=== PATIENT | male | born 1990 | race Hispanic/Latino ===

== ENCOUNTER 2018-01-02 20:01 | Emergency (ER) | payer SELFPAY ==
[2018-01-02] MEDS ORDERED: Adacel (T-DAP) 0.5 ML VIAL ONE (21:56)
== END 2018-01-02 22:15 | disposition home or self-care (01) ==
LOC: ERS 20:01
DX: S01.01XA Laceration without foreign body of scalp, initial encounter (principal); F32.9 Major depressive disorder, single episode, unspecified; Z87.891 Personal history of nicotine dependence; W45.0XXA Nail entering through skin, initial encounter; Y92.009 Unspecified place in unspecified non-institutional (private) residence as the place of occurrence of the external cause
CPT/HCPCS: 12001; 90471; 90715

== ENCOUNTER 2018-01-15 09:54 | Emergency (ER) | payer SELFPAY | END 2018-01-15 10:14 | disposition home or self-care (01) | LOC: ERS 09:54 | DX: S01.01XD Laceration without foreign body of scalp, subsequent encounter (principal); F32.9 Major depressive disorder, single episode, unspecified; Z87.891 Personal history of nicotine dependence ==

== ENCOUNTER 2018-12-15 14:36 | Emergency (ER) | payer SELFPAY ==
[2018-12-15] MEDS ORDERED: Adacel (T-DAP) 0.5 ML SYRINGE ONE (14:43)
[2018-12-15] MEDS ORDERED: Fentanyl 100 MCG/2 ML VIAL ONE (15:05)
[2018-12-15] MEDS ORDERED: Lidocaine 1% PF 5 ML VIAL ONE (15:05)
--- NOTE | 2018-12-15 15:30 | RAD ---
RIGHT FOREARM TWO VIEWS: History: Right arm injury. FINDINGS: Radius and ulna are intact. Mild ulnar negative variant. No acute fracture, dislocation, or aggressiv e osseous erosions. IMPRESSION: No acute osseous abnormalities are demonstrated. POS: NIKOSH
--- NOTE | 2018-12-15 15:33 | RAD ---
RIGHT HAND THREE VIEWS: History: Right hand injury. FINDINGS: Joint spaces are preserved. No acute fracture, dislocation, or aggressive osseous erosions. Small navjot ntly opaque oval objects project over the soft tissue webbing between the first and second metacarpal s. IMPRESSION: 1. No acute osseous abnormalities are demonstrated. 2. Small, oval faintly radiopaque objects at the lateral palm could represent imbedded foreign bodies . Correlation with clinical findings is required. POS: ESTER
[2018-12-15] MEDS ORDERED: Bacitracin Zinc 1 Packet ONE (15:40)
== END 2018-12-15 15:54 | disposition home or self-care (01) ==
LOC: ERS 14:36
DX: S67.21XA Crushing injury of right hand, initial encounter (principal); S61.011A Laceration without foreign body of right thumb without damage to nail, initial encounter; S50.11XA Contusion of right forearm, initial encounter; F32.9 Major depressive disorder, single episode, unspecified; Z23 Encounter for immunization; Z87.891 Personal history of nicotine dependence; W20.8XXA Other cause of strike by thrown, projected or falling object, initial encounter; Y99.0 Civilian activity done for income or pay
CPT/HCPCS: 64450; 90471; 90715; 96372; J2001; J3010

== ENCOUNTER 2018-12-25 19:16 | Emergency (ER) | payer SELFPAY | END 2018-12-25 19:38 | disposition home or self-care (01) | LOC: ERS 19:16 | DX: B00.9 Herpesviral infection, unspecified (principal); F32.9 Major depressive disorder, single episode, unspecified; F17.210 Nicotine dependence, cigarettes, uncomplicated | CPT/HCPCS: 99281 ==

== ENCOUNTER 2019-06-08 01:09 | Emergency (ER) | payer SELFPAY ==
[2019-06-08] MEDS ORDERED: Ondansetron PF 4 MG/2 ML Vial ONE (01:19)
[2019-06-08] MEDS ORDERED: Morphine 4 MG/ML VIAL ONE ×2 (01:31→01:56)
[2019-06-08 01:39] LABS: #Basophils 0.1 thou/uL (0.0-0.2); #Eosinphils 0.3 thou/uL (0.0-0.7); #Monocytes 0.6 thou/uL (0.11-0.59); #Neutrophils 6.1 thou/uL (1.40-6.50); %Basophils 0.7 % (0.0-1.0); %Eosinophils 3.7 % (0.0-10.0); %Lymphocytes 22.5 % (21.0-51.0); %Monocytes 6.2 % (0.0-10.0); %Neutrophils 66.9 % (42.0-75.0); Hemoglobin 14.1 g/dL (14.0-18.0); Mean Corpuscular HGB CONC 35.2 g/dL (32.0-36.0); Mean Corpuscular Hemoglobin 33.1 pg (27.0-31.0); Mean Platelet Volume 8.1 fL (7.4-10.4); Platelet Count 158 thou/uL (130-400); RBC Distribution Width 11.6 % (11.5-14.5); Red Blood Cell (RBC) Count 4.27 mill/uL (4.70-6.10); White Blood Cell (WBC) Count 9.1 thou/uL (4.8-10.8)
[2019-06-08 01:59] LABS: ALT (SGPT) 17 U/L (8-55); AST (SGOT) 24 U/L (5-34); Albumin 4.1 g/dL (3.5-5.0); Alkaline Phosphatase 87 U/L (40-150); Anion Gap 8 mmol/L (10-20); BUN (Urea Nitrogen) 10 mg/dL (8.9-20.6); Bilirubin, Total 0.4 mg/dL (0.2-1.2); CK (CPK) 94 U/L (30-200); Calc. Creatinine Clearance 0 mL/min (70-130); Calcium 9.1 mg/dL (7.8-10.44); Carbon Dioxide 33 mmol/L (22-29); Chloride 101 mmol/L (98-107); Estimated GFR-MDRD Greater than 90; Globulin 2.3 g/dL (2.4-3.5); Glucose 116 mg/dL (70-105); Lipase 21 U/L (8-78); Potassium 3.4 mmol/L (3.5-5.1); Protein, Total 6.4 g/dL (6.0-8.3); Sodium 139 mmol/L (136-145)
[2019-06-08] MEDS ORDERED: Lidocaine Viscous Sol 2% 15 ml UD Cup ONE (02:18)
[2019-06-08] MEDS ORDERED: Ketorolac Tromethamine 30 MG/ML VIAL ONE (02:18)
[2019-06-08] MEDS ORDERED: Mag-Al 1200 mg/1200 mg/30 ML UDCUP ONE (02:18)
[2019-06-08] MEDS ORDERED: Promethazine HCl 25 MG/ML VIAL ONE (02:22)
--- NOTE | 2019-06-08 07:49 | ULT ---
PRELIMINARY REPORT/[facility]/EMERGENCY AFTER HOURS PROCEDURE: EXAM: US Abdomen Limited, Right Upper Quadrant EXAM DATE/TIME: 06/08/2019 3:18 AM CLINICAL HISTORY: 29 years old, male; Nausea and vomiting and other: Diarrhea; Abdominal pain; Epigastric TECHNIQUE: Imaging protocol: Real-time ultrasound of the abdomen with image documentation. Examination was focused on the right upper quadrant. COMPARISON: CT Abdomen Pelvis W Con 06/08/2019 1:37 AM FINDINGS: Liver: Liver is 18 cm in length with normal echogenicity. Gallbladder: Gallbladder does not appear to contain stones. Common bile duct: Common bile duct is normal in width at 5 mm. Pancreas: Visualized portions of the pancreas appear normal. Right kidney: Right kidney 4.2 x 5.5 x 9.9 cm appears normal. Portal venous: Normal appearing main portal vein flow. Intraperitoneal space: No evidence of free fluid. IMPRESSION: 1. Mild enlargement/elongation of the liver. 2. No evidence gallstones, biliary ductal dilatation, gallbladder wall thickening or pericholecystic fluid. Thank you for allowing us to participate in the care of your patient. Dictated and Authenticated by: Jarod Wilhelm MD 06/08/2019 3:40 AM Central Time ([place] & [place]) FINAL REPORT EMERGENCY AFTER HOURS RIGHT UPPER QUADRANT ULTRASOUND: Date: 06/08/19 Time: 0328 hours FINDINGS/IMPRESSION: Mild elongation or enlargement of the liver. No evidence of gallstones, common duct dilatation, or ot her acute process. Report is in agreement with the preliminary report. Transcribed Date/Time: 06/08/2019 8:02 AM
--- NOTE | 2019-06-08 09:10 | CT ---
PRELIMINARY REPORT/[facility]/EMERGENCY AFTER HOURS PROCEDURE: EXAM: CT Abdomen and Pelvis With Contrast EXAM DATE/TIME: 06/08/2019 1:37 AM CLINICAL HISTORY: 29 years old, male; Patient HX: Er 14. PT C/O severe abdominal pain (epigastric) and vomiting that st arted around midnight tonight. reports that PT gets this way when he becomes dehydrated. TECHNIQUE: Imaging protocol: Axial computed tomography images of the abdomen and pelvis with intravenous contras t. COMPARISON: No relevant prior studies available. FINDINGS: Limitations: Motion artifact limits this study. Liver: Normal. No mass. Gallbladder and bile ducts: Gallbladder appears contracted, limits evaluation. Pancreas: Normal. No ductal dilation. Spleen: Normal. No splenomegaly. Adrenals: Normal. No mass. Kidneys and ureters: Normal. No hydronephrosis. Stomach and bowel: No evidence of bowel obstruction. Appendix: Appendix - visualized portions appear normal. Intraperitoneal space: Normal. No free air. No significant fluid collection. Vasculature: Normal. No abdominal aortic aneurysm. Lymph nodes: Normal. No enlarged lymph nodes. Bladder: Unremarkable as visualized. Reproductive: Prostate appears within normal limits. Bones/joints: No acute fracture. No dislocation. Soft tissues: Unremarkable. IMPRESSION: 1. Motion artifact limits this study. 2. No evidence of bowel obstruction. Thank you for allowing us to participate in the care of your patient. Dictated and Authenticated by: Jarod Wilhelm MD 06/08/2019 2:18 AM Central Time ([place] & [place]) FINAL REPORT ABDOMEN CT WITH CONTRAST PELVIC CT WITH CONTRAST: Date: 06/08/19 HISTORY: Epigastric pain. Emesis. COMPARISON: None. FINDINGS: ABDOMEN CT: Clear lung bases. Appropriate enhancement of the solid organs. No mesenteric mass, lymphadenopathy, f ree air, or free fluid. Limited evaluation of the alimentary canal by lack of oral contrast. No evidence of bowel obstruction . Appendix is partially visualized and appears to be normal in caliber. PELVIC CT: Unremarkable urinary bladder. Small amount of free fluid in the pelvis. No mass, lymphadenopathy, or free air. IMPRESSION: This report is in agreement with the preliminary report by [facility]. No obvious acute abnormality in the abdomen or pelvis. A small amount of free fluid in the pelvis may be present. Evaluation is limited b y motion. Correlate clinically. Results of study discussed with Dr. Ratliff on 06/08/19 at 0747 hours. CODE CR. POS: OFF
== END 2019-06-08 04:26 | disposition home or self-care (01) ==
LOC: ERS 01:09
DX: R10.13 Epigastric pain (principal); F32.9 Major depressive disorder, single episode, unspecified; F17.210 Nicotine dependence, cigarettes, uncomplicated
CPT/HCPCS: 36415; 74177; 76705; 80053; 82550; 83690; 85025; 96361; 96365; 96366; 96375; J1885; J2270; J2405; J2550

== ENCOUNTER 2021-05-02 02:32 | Inpatient (IN) | payer SELFPAY ==
[2021-05-02] MEDS ORDERED: Ondansetron PF 4 MG/2 ML Vial ONE (02:48)
[2021-05-02 03:17] LABS: #Lymphocytes 2.5 thou/uL (1.20-3.40); #Monocytes 0.7 thou/uL (0.11-0.59); #Neutrophils 15.4 thou/uL (1.40-6.50); %Basophils 0.1 % (0.0-1.0); %Eosinophils 0.2 % (0.0-10.0); %Lymphocytes 13.4 % (21.0-51.0); %Monocytes 3.6 % (0.0-10.0); %Neutrophils 82.7 % (42.0-75.0); Hemoglobin 18.9 g/dL (14.0-18.0); Mean Corpuscular HGB CONC 34.3 g/dL (32.0-36.0); Mean Corpuscular Hemoglobin 31.3 pg (27.0-31.0); Mean Platelet Volume 8.3 fL (7.4-10.4); Platelet Count 365 thou/uL (130-400); Red Blood Cell (RBC) Count 6.04 mill/uL (4.70-6.10); White Blood Cell (WBC) Count 18.6 thou/uL (4.8-10.8)
[2021-05-02 03:37] LABS: ALT (SGPT) 37 U/L (8-55); AST (SGOT) 36 U/L (5-34); Alkaline Phosphatase 104 U/L (40-110); Anion Gap 29 mmol/L (10-20); BUN (Urea Nitrogen) 28 mg/dL (8.9-20.6); Bilirubin, Total 1.6 mg/dL (0.2-1.2); CK (CPK) 427 U/L (30-200); Calc. Creatinine Clearance 0 mL/min (70-130); Carbon Dioxide 17 mmol/L (22-29); Chloride 96 mmol/L (98-107); Glucose 138 mg/dL (70-105); Magnesium 2.6 mg/dL (1.6-2.6); Potassium 4.8 mmol/L (3.5-5.1); Protein, Total 10.8 g/dL (6.0-8.3); Sodium 137 mmol/L (136-145)
[2021-05-02 03:41] LABS: Albumin Greater than 6.2 g/dL (3.5-5.0); Globulin 4.6 g/dL (2.4-3.5)
[2021-05-02 05:41] VITALS: BMI 23.0
[2021-05-02] MEDS ORDERED: Ondansetron PF 4 MG/2 ML Vial IVP PRN ×2 (07:21→21:03)
[2021-05-02] MEDS ORDERED: Ondansetron ODT 4 MG TAB PO PRN (07:21)
[2021-05-02] MEDS: Sodium Chloride 0.9% 1,000 ML IV SCH ×2 (08:39→10:33)
[2021-05-02 09:15] LABS: Acetaminophen Less than 6.0 mcg/mL (10.0-30.0); Alcohol Less than 10 mg/dL (Less than 10)
[2021-05-02 09:18] LABS: Lactic Acid 0.7 mmol/L (0.5-2.2)
[2021-05-02 09:28] LABS: Bacteria/HPF None Seen HPF (None Seen); Bilirubin Negative (Negative); Blood, Urine Negative (Negative); Clarity Turbid (Clear); Glucose, Urine (Dipstick) Normal (Negative); Ketone, Urine 10 mg/dL (Negative); Leukocyte Negative Leu/uL (Negative); Nitrite Negative (Negative); Protein, Urine (Dipstick) 70 mg/dL (Neg-Trace); RBC/HPF 0-3 HPF (0-3); Specific Gravity, Urine 1.025 (1.002-1.036); Squamous Epithelial None Seen HPF (0-3); Urobilinogen Normal mg/dL (Less than 2); WBC/HPF 0-3 HPF (0-3); pH, Urine 5.5 (5.0-9.0)
[2021-05-02 09:29] LABS: Urine Culture Reflex No No
[2021-05-02 09:36] LABS: Amphetamine Detected (NotDetected); Barbiturates Screen Not Detected (NotDetected); Benzodiazepine Screen Not Detected (NotDetected); Cocaine Metabolite Screen Not Detected (NotDetected); Medtox Control Line Valid? VALID (VALID); Medtox Reader # READER 4; Methadone Not Detected (NotDetected); Methamphetamine Detected (NotDetected); Opiate Screen Not Detected (NotDetected); Oxycodone Screen Not Detected (NotDetected); Phencyclidine (PCP) Not Detected (NotDetected); THC/Cannabinoid Screen Detected (NotDetected); Tricyclic Screen Not Detected (NotDetected)
[2021-05-02 09:40] LABS: Potassium, Urine 95.5 mmol/L
[2021-05-02 11:09] LABS: SARS-CoV-2 PCR by NAA Not Detected (NotDetected)
[2021-05-02] MEDS: Sodium Bicarbonate 150 MEQ in Dextrose 5% in Water 1,000 ML IV SCH ×3 (12:45→23:37)
[2021-05-03] MEDS: Sodium Bicarbonate 150 MEQ in Dextrose 5% in Water 1,000 ML IV SCH ×2 (05:24→11:34)
[2021-05-03 06:21] LABS: #Basophils 0.1 thou/uL (0.0-0.2); #Eosinphils 0.2 thou/uL (0.0-0.7); #Monocytes 0.6 thou/uL (0.11-0.59); #Neutrophils 3.3 thou/uL (1.40-6.50); %Basophils 0.8 % (0.0-1.0); %Eosinophils 3.2 % (0.0-10.0); %Lymphocytes 41.7 % (21.0-51.0); %Monocytes 8.3 % (0.0-10.0); %Neutrophils 46.1 % (42.0-75.0); Hemoglobin 13.5 g/dL (14.0-18.0); Mean Corpuscular HGB CONC 35.6 g/dL (32.0-36.0); Mean Corpuscular Hemoglobin 33.6 pg (27.0-31.0); Mean Corpuscular Volume 94.3 fL (78.0-98.0); Mean Platelet Volume 8.1 fL (7.4-10.4); Platelet Count 205 thou/uL (130-400); RBC Distribution Width 11.6 % (11.5-14.5); Red Blood Cell (RBC) Count 4.02 mill/uL (4.70-6.10); White Blood Cell (WBC) Count 7.2 thou/uL (4.8-10.8)
[2021-05-03 11:52] VITALS: BP 128/84; TEMP 98.2
[2021-05-03 12:10] LABS: Albumin 3.8 g/dL (3.5-5.0); BUN (Urea Nitrogen) 10 mg/dL (8.9-20.6); BUN/Creatinine Ratio 9.62; Calc. Creatinine Clearance 111 mL/min (70-130); Calcium 8.5 mg/dL (7.8-10.44); Chloride 97 mmol/L (98-107); Glucose 101 mg/dL (70-105); Phosphorus 2.4 mg/dL (2.3-4.7); Potassium 3.9 mmol/L (3.5-5.1); Sodium 139 mmol/L (136-145)
[2021-05-03 17:25] LABS: Anion Gap 15 mmol/L (10-20); Carbon Dioxide 29 mmol/L (22-29)
== END 2021-05-03 14:42 | disposition home or self-care (01) | DRG 683 ==
LOC: ERS 02:32 → ERHOLD 04:20 → T4-B 10:22
PROVIDERS: ADMIT Student in an Organized Health Care Education/Training Program; ATTEND Family Medicine
DX: N17.9 Acute kidney failure, unspecified (principal); M62.82 Rhabdomyolysis; E87.2 Acidosis; E86.0 Dehydration; F15.10 Other stimulant abuse, uncomplicated; F12.10 Cannabis abuse, uncomplicated; E83.52 Hypercalcemia; Z20.822 Contact with and (suspected) exposure to COVID-19; T67.5XXA Heat exhaustion, unspecified, initial encounter; X30.XXXA Exposure to excessive natural heat, initial encounter; Z98.890 Other specified postprocedural states; Z71.51 Drug abuse counseling and surveillance of drug abuser
CPT/HCPCS: 36415; 76770; 80053; 80069; 80143; 80306; 80307; 81001; 82010; 82436; 82550; 82570; 83605; 83735; 83930; 83935; 84133; 84300; 84540; 85025; 96374; J2405; J7070; U0003; U0005

== ENCOUNTER 2022-04-27 13:14 | Emergency (ER) | payer SELFPAY ==
[2022-04-27 14:01] LABS: #Eosinphils 0.1 thou/uL (0.0-0.7); #Monocytes 0.6 thou/uL (0.11-0.59); #Neutrophils 16.1 thou/uL (1.40-6.50); %Basophils 0.2 % (0.0-1.0); %Eosinophils 0.3 % (0.0-10.0); %Lymphocytes 5.6 % (21.0-51.0); %Monocytes 3.5 % (0.0-10.0); %Neutrophils 90.5 % (42.0-75.0); Hemoglobin 16.2 g/dL (14.0-18.0); Mean Corpuscular HGB CONC 34.4 g/dL (32.0-36.0); Mean Corpuscular Hemoglobin 33.1 pg (27.0-31.0); Mean Corpuscular Volume 96.3 fL (78.0-98.0); Mean Platelet Volume 7.6 fL (7.4-10.4); Platelet Count 229 thou/uL (130-400); RBC Distribution Width 11.5 % (11.5-14.5); White Blood Cell (WBC) Count 17.8 thou/uL (4.8-10.8)
[2022-04-27 14:22] LABS: ALT (SGPT) 19 U/L (8-55); AST (SGOT) 21 U/L (5-34); Albumin 4.7 g/dL (3.5-5.0); Alkaline Phosphatase 83 U/L (40-110); Anion Gap 14 mmol/L (10-20); BUN (Urea Nitrogen) 17 mg/dL (8.9-20.6); Bilirubin, Total 0.9 mg/dL (0.2-1.2); Calc. Creatinine Clearance 0 mL/min (70-130); Calcium 10.1 mg/dL (7.8-10.44); Carbon Dioxide 26 mmol/L (22-29); Chloride 102 mmol/L (98-107); Globulin 2.9 g/dL (2.4-3.5); Glucose 120 mg/dL (70-105); Lipase 13 U/L (8-78); Potassium 4.2 mmol/L (3.5-5.1); Protein, Total 7.6 g/dL (6.0-8.3); Sodium 138 mmol/L (136-145)
[2022-04-27 17:17] LABS: Actual Bicarbonate (HCO3v) 26 mEq/L (22-28); Analyzer IN Cardio ER; Base Excess -0.1 mEq/L (-2.0 to +3.0); Calcium, Ionized (venous) 1.14 mmol/L (1.16-1.32); Chloride (VBG) 99 mmol/L (98-106); Hemoglobin (Hb) 20.5 g/dL (13.2-17.3); Potassium (VBG) 3.63 mmol/L (3.70-5.30); Sodium 137.1 mmol/L (133-146); pH (venous) 7.37 (7.32-7.43)
== END 2022-04-27 18:00 | disposition home or self-care (01) ==
LOC: ERS 13:14
DX: T52.0X1A Toxic effect of petroleum products, accidental (unintentional), initial encounter (principal); J68.0 Bronchitis and pneumonitis due to chemicals, gases, fumes and vapors; Z87.891 Personal history of nicotine dependence
CPT/HCPCS: 36415; 71046; 80053; 82805; 83690; 85025; 93005